=== PATIENT | male | born 1985 | race Two or more races ===

== ENCOUNTER 2017-02-13 10:24 | Emergency (ER) | payer OTHER ==
[~2017-02-13] VITALS: Ht 172.7 cm; Wt 83.2 kg
[2017-02-13 13:08] VITALS: BP 148/92
== END 2017-02-13 13:08 | disposition home or self-care (01) ==
LOC: ED 10:24
DX: S30.22XA Contusion of scrotum and testes, initial encounter (principal); X58.XXXA Exposure to other specified factors, initial encounter; Y93.89 Activity, other specified; Y92.89 Other specified places as the place of occurrence of the external cause; Y99.8 Other external cause status